=== PATIENT | female | born 1990 | race Caucasian/White ===

== ENCOUNTER 2017-08-13 21:52 | Emergency (ER) | payer OTHER ==
[~2017-08-13] VITALS: Ht 160 cm; Wt 77.3 kg
[2017-08-13 21:55] VITALS: Ht 160 cm; Wt 77.3 kg
[2017-08-14] MEDS ORDERED: KETOROLAC 15 MG INJ IM STA (00:12)
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
[2017-08-14] MEDS ORDERED: DIAZEPAM 5 MG TAB PO ONE (00:30)
[2017-08-14] MEDS ORDERED: NAPR-260 PO (02:05)
[2017-08-14] MEDS ORDERED: HYDR-906 PO (02:06)
[2017-08-14] MEDS ORDERED: DIAZ-90 PO (02:06)
[2017-08-14 02:27] VITALS: BP 141/98; PULSE 115; RESP 16
== END 2017-08-14 02:29 | disposition home or self-care (01) ==
LOC: FTE 21:52
DX: S13.9XXA Sprain of joints and ligaments of unspecified parts of neck, initial encounter (principal); I10 Essential (primary) hypertension; E11.9 Type 2 diabetes mellitus without complications; V49.50XA Passenger injured in collision with unspecified motor vehicles in traffic accident, initial encounter
CPT/HCPCS: 93005; 96372; J1885; Z7502; Z7610